=== PATIENT | female | born 1960 | race Caucasian/White ===

== ENCOUNTER → 2021-04-24 | Outpatient (CLI) | payer BC | LOC: MC.RAD 09:44 | DX: Z12.31 Encounter for screening mammogram for malignant neoplasm of breast (principal) ==

== ENCOUNTER → 2024-02-17 | Day surgery (SDC) | payer BC ==
[~2024-02-17] VITALS: Ht 162.6 cm; Wt 65.8 kg
[~2024-02-17] MED LIST: AMBIEN 5MG TABLE5 MG PO; ATARAX 25MG25 MG/TAB PO; B COMPLEX #11 TA1 PO; CRESTOR 10MG10 MG PO; FLONASE NASAL S16 GM NS; FOSAMAX 70MG TA70 MG PO; LR 1,000 ML IV SCH; Lidocaine PF 2% (20 MG/ML) 5 ML VIAL ONE; MULTI VITAMINS1 TAB PO; Ondansetron 4 MG/2 ML VIAL IV PRN; PRILOSEC 20MG20 MG PO; SUPER CALCIUM W1 TA1 PO; VITAMIN C500 MG PO; VITAMIN D31000 I1 PO; VITAMIN K0.1 MG PO; VOLTAREN 75 DR75 MG PO
[2024-02-17 09:20] VITALS: BP 111/78; PULSE 82; TEMP 98.2
[2024-02-17 10:34] VITALS: BP 128/85; PULSE 76
--- NOTE | 2024-02-17 10:35 | NUR ---
1035 PT ARRIVES TO [facility]AY [facility] VIA CART. PT ASSISTED TO RECLINER WITH TWO STAFF PT REPORTS LOTS OF GAS WITH ABDOMINAL PAIN. WHEN SHE PASSES GAS THE PAIN DECREASES. 1041 PT GIVEN SNACK OF JUICE AND VANILLA ICE CREAM. 1054 IN TO SEE PT AND FAMILY. 1100 IV DC'D INTACT WITH PRESSURE DRESSING APPLIED. DC INSTRUCTIONS GIVEN TO PT AND FAMILY. ALL QUESTIONS INVITED AND ANSWERED. 1118 PT TAKEN TO POV IN WHEELCHAIR
[2024-02-17 10:45] VITALS: BP 118/76; PULSE 81
[2024-02-17 10:50] VITALS: BP 139/82; PULSE 77
== END ==
LOC: SDCO 08:16
DX: Z12.11 Encounter for screening for malignant neoplasm of colon (principal); K63.5 Polyp of colon; K21.9 Gastro-esophageal reflux disease without esophagitis; K57.30 Diverticulosis of large intestine without perforation or abscess without bleeding; Z87.891 Personal history of nicotine dependence; Z79.82 Long term (current) use of aspirin
CPT/HCPCS: J2704; J7120